=== PATIENT | female | born 1985 | race Caucasian/White ===

== ENCOUNTER 2017-02-28 12:57 | Inpatient (IN) | payer BC, OTHER ==
[~2017-02-28] VITALS: Ht 175.3 cm; Wt 58.5 kg
[2017-02-28] MEDS ORDERED: ONDANSETRON ODT 4 MG TAB.RAPDIS SL PRN (20:45)
[2017-02-28] MEDS ORDERED: DICYCLOMINE HCL 20 MG TABLET PO PRN (20:45)
[2017-02-28] MEDS ORDERED: LOPERAMIDE HCL 2 MG CAPSULE PO PRN ×2 (20:45)
[2017-02-28] MEDS ORDERED: BUPRENORPHINE HCL 2 MG TAB.SUBL SL PRN (20:45)
[2017-02-28] MEDS ORDERED: ACETAMINOPHEN 325 MG TABLET PO PRN (20:45)
[2017-02-28] MEDS ORDERED: MIRALAX 17 GM POWD.PACK PO PRN (20:45)
[2017-02-28] MEDS ORDERED: LORAZEPAM 2 MG/1 ML VIAL IM PRN (20:45)
[2017-02-28] MEDS ORDERED: LORAZEPAM 1 MG TABLET PO PRN ×2 (20:45)
[2017-02-28] MEDS ORDERED: MAG HYDROX/AL HYDROX/SIMETH 30 ML LIQUID UDC PO PRN (20:45)
[2017-02-28] MEDS ORDERED: MAGNESIUM HYDROXIDE 30 ML LIQUID UDC PO PRN (20:45)
[2017-02-28] MEDS ORDERED: IBUPROFEN 600 MG TABLET PO PRN (20:45)
[2017-02-28] MEDS ORDERED: METHOCARBAMOL 750 MG TABLET PO PRN (20:45)
[2017-02-28] MEDS ORDERED: ONDANSETRON 4 MG/2 ML VIAL IM PRN (20:45)
--- NOTE | 2017-02-28 21:30 | NUR ---
INTAKE ASSESSMENT BP: 114/72, RR: 18, HR: 84, SpO2: 100%, T: 98.1 Pt is in stable condition and able to be admitted on the unit. Unit protocols regarding medications and vital signs Q4H explained. Pt verbalized understanding. Will monitor.
--- NOTE | 2017-02-28 21:34 | NUR ---
Pt not admitted to unit at this time. EKG to be done (per MD orders) when pt admitted.
--- NOTE | 2017-02-28 23:00 | NUR ---
ADMISSION NOTE Ht: 59 Wt: 129lbs CIWA:7, COWS:11 Pt arrived ambulatory from [facility] to the third floor accompanied by a SENSORY SCIENTIST at 2252. Pt is a 31 year old female admitted on 02/28/17 for Benzo, Opiate and phentermine dependency. Pt is full code with NKA. She reports a PMHX of a alcoholism, cirrhosis(at age 26), hypothyroidism, anxiety, panic attacks, OCD, depression, body dysmorphia, and eating disorder( since 16 y/o). She denies any history of seizures. She denies having a PCP and brought in several home medications which have been reconciled. Pt reports that she has been to treatment in the past. In 2003 she went to rehab for EOTH and opiate dependency at [facility] in [place], [place]. In 2010 she went to [facility] for ETOH dependency. She reports that she was an alcoholic from age [age] and is currently in recovery. This is her first time in detox. She reports her longest sobriety was approximately 1 year from April 2011-December 2011 She reports that she is here for Xanax, [place] and Phentermine dependency. She describes her current use as: 1. Xanax 1 mg-6 mg PO daily since April 2013 Last dose: 1 mg on 02/28/17 2. [place] (10/325) 140 mg intermittently since 2013. Pt reports from [id number] she took [place]( 5/325) 22 pills daily. Last dose: 90 mg on 02/28/17 3. Phentermine 30 mg ( 8 pills) daily for 1 year. Last dose: 150 mg on 02/28/17. She describes her withdrawal symptoms as: "nausea, stomach cramps, pain and sweats" Upon assessment, pt is alert and oriented x4. Pt is observed to be anxious, restless, and agitated, but is cooperative. Speech is clear and audible. Heart rate is regular. Pt denies chest pain or SOB. PERRLA, breathing is even and unlabored, lung sounds clear in all lobes. Abdomen is soft and non distended, bowel sounds present. Last BM 02/28/17. Pt reports that BM is regular. Pt's skin is warm, dry and intact. made aware of pt's admission. Pt oriented to room and unit. Pt safe with bed locked in lowest position, side rails up x2 and call light within reach. Will continue to monitor.
[2017-02-28 23:36] LABS: BASOPHILS % (AUTO) 0.3 % (0.0-2.0); EOSINOPHILS # (AUTO) 0.1 K/uL (0.0-0.7); EOSINOPHILS % (AUTO) 1.4 % (0.0-7.0); HEMATOCRIT 34.5 % (37-47); HEMOGLOBIN 11.7 G/DL (12.0-16.0); LYMPHOCYTES # (AUTO) 2.9 K/UL (0.8-4.8); MEAN CORPUSCULAR HEMOGLOBIN 30.6 UUG (27.0-31.0); MEAN CORPUSCULAR HGB CONC 34 g/dL (32.0-37.0); MEAN CORPUSCULAR VOLUME 90.6 FL (81.0-99.0); MONOCYTES # (AUTO) 0.5 K/UL (0.1-1.30); NEUTROPHILS # (AUTO) 2.5 K/UL (1.8-8.9); NEUTROPHILS % (AUTO) 42.3 % (38.5-71.5); PLATELET COUNT (AUTO) 204 K/UL (150-450); RED BLOOD CELL COUNT(AUTO) 3.81 MIL/UL (4.2-5.4); RED CELL DISTRIBUTION WIDTH 11.9 % (11.5-14.5)
[2017-02-28 23:43] LABS: *URINE HCG, QUAL NEGATIVE (NEGATIVE)
[2017-02-28 23:44] LABS: ETHANOL < 3 MG/DL (0-0)
[2017-02-28 23:46] LABS: ALANINE AMINOTRANSFERASE 25 U/L (14-59); ALBUMIN 4.2 g/dL (3.4-5.0); ALKALINE PHOSPHATASE 62 U/L (50-136); ASPARTATE AMINOTRANSFERASE 25 U/L (15-37); BILIRUBIN,TOTAL 0.3 mg/dL (0.2-1.0); CARBON DIOXIDE 28 mmol/L (21-32); CHLORIDE 103 mmol/L (98-107); GFR 65 mL/min (>60); MAGNESIUM 2.2 mg/dL (1.8-2.4); POTASSIUM 3.8 mmol/L (3.5-5.1); SODIUM SERUM 140 mmol/L (136-145); TOTAL PROTEIN, SERUM 7.6 g/dL (6.4-8.2); UREA NITROGEN, BLOOD 12 mg/dL (7-18)
[2017-02-28 23:49] LABS: *AMPHETAMINE, URINE POSITIVE (NEGATIVE); *BARBITURATE, URINE NEGATIVE (NEGATIVE); *CANNABINOID, URINE POSITIVE (NEGATIVE); *COCCAINE, URINE NEGATIVE (NEGATIVE); *OPIATE, URINE POSITIVE (NEGATIVE); *PHENCYCLIDINE SCREEN,URINE NEGATIVE (NEGATIVE)
[2017-02-28 23:55] LABS: GLUCOSE 48 mg/dL (74-106)
[2017-02-28 23:57] LABS: THYROID STIMULATING HORMONE 0.486 mIU/mL (0.358-3.740)
[2017-03-01] VITALS: BP 118/64
[2017-03-01] LABS: HIV-1 p24 ANTIGEN NON REACTIVE (NONREACTIVE); HIV-1/2 ANTIBODY NON REACTIVE (NONREACTIVE)
[2017-03-01] MEDS ORDERED: LORAZEPAM 1 MG TABLET ONE (01:33)
[2017-03-01] MEDS ORDERED: CLONIDINE HCL 0.1 MG TABLET ONE (01:34)
[2017-03-01] MEDS ORDERED: diphenhydrAMINE 50 MG CAPSULE ONE (01:34)
[2017-03-01] MEDS: CLONIDINE HCL 0.1 MG TABLET PO PRN (01:44)
[2017-03-01] MEDS: diphenhydrAMINE 50 MG CAPSULE PO PRN (01:44)
--- NOTE | 2017-03-01 01:44 | NUR ---
PRN ATIVAN/CLONIDINE/BENADRYL Pt complains of anxiety/restlessness and inability to fall asleep. Pt observed to be restless in room, unable to sit still. Slight tremor observed. CIWA: 7. PRN Ativan, Clonidine and Benadryl administered as ordered. Breathing is even and unlabored, respirations 16. Safety measures in place. Will continue to monitor effectiveness of medications.
--- NOTE | 2017-03-01 02:44 | NUR ---
PRN ATIVAN/CLONIDINE/BENADRYL REASSESSMENT PRN medications effective. Pt lying comfortably in bed with eyes closed noted to be asleep. No facial grimacing noted. Respirations 16, breathing is even and unlabored. Safety measures in place. Will continue to monitor.
[2017-03-01 04:00] VITALS: BP 109/56
--- NOTE | 2017-03-01 04:00 | NUR ---
COWS/CIWA DEFERRED COWS/CIWA deferred d/t order is Q4H while awake. Pt lying in bed with eyes closed noted to be asleep. Respirations 16, breathing is even and unlabored. Safety measures in place. Will monitor.
[2017-03-01] MEDS ORDERED: FLUO40CA49 PO (04:42)
[2017-03-01] MEDS ORDERED: ESTR-14 PO (04:42)
[2017-03-01] MEDS ORDERED: NEOM28.38 TP (04:42)
[2017-03-01] MEDS ORDERED: [UNRECOGNIZED DRUG - CODE] OP (04:42)
[2017-03-01] MEDS ORDERED: TRET20CR34 TP (04:42)
--- NOTE | 2017-03-01 07:21 | NUR ---
END OF SHIFT Pt is a 31 year old female patient admitted on 02/28/17 for Benzo, Opiate and Phentermine dependency. Pt is full code with NKA. At 0144 she received PRN Benadryl, Ativan and Clonidine. She slept a total of 4 hrs, Intake: 855mL ,Void: x1, BM: 0, COWS:11, CIWA: 7. Pt remains alert and oriented x4, breathing is even and unlabored. Pt is safe with bed locked in lowest position, side rails up x2 and call light within reach. Endorsed to oncoming shift.
--- NOTE | 2017-03-01 07:53 | NUR ---
BEGINNING OF SHIFT Patient endorsement report received from film processing shift supervisor nurse, all pertinent information discussed. patient is a 31 year old male admitted on 02/28/2017 with admitting Dx: BZO/opiate dependence. Patient currently with no ongoing taper, remains under close observation and has PRN medication available, for s/sx of withdrawal, per nights shift patient received PRN: Ativan, clonidine and Benadryl, medications were effective as per film processing shift supervisor. Patient with last cow score of: 11 and last ciwa score of: 7. Patient slept for 4 hours. Patient received awake, alert and oriented x4, educated regarding plan of care for the day and medication regimen. safety measures in place. call light kept with in reach, will continue to monitor.
[2017-03-01 08:49] VITALS: BP 96/62
[2017-03-01] MEDS: LORAZEPAM 1 MG TABLET PO SCH ×4 (08:58→20:08)
[2017-03-01] MEDS: MULTIVITAMINS,THERAPEUTIC TABLET PO SCH (08:58)
[2017-03-01] MEDS ORDERED: TUBERCULIN,PURIF.PROT.DERIV. 5 TU/0.1 ML TEST ID ONE (09:00)
[2017-03-01] MEDS: BUPRENORPHINE HCL 2 MG TAB.SUBL SL SCH ×4 (10:00→20:09)
--- NOTE | 2017-03-01 10:00 | NUR ---
REFUSED SUBUTEX 0900 assessment patient with cow score of: 8, As per Md order patient to be administered Subutex 4mg sl as ordered for cow score 8 or greater, risk vs benefits of refusing detox medication explained with good verbal understanding. Educated regarding s/sx of withdrawal. Patient encouraged adequate PO fluid intake as tolerated. Encouraged to attend group therapies/sessions to learn new coping skills to prevent relapse, denies any SI/HI. Safety measures in place. MD is aware.
[2017-03-01 12:30] VITALS: BP 112/68
[2017-03-01] MEDS: FLUOXETINE HCL 20 MG CAPSULE PO SCH (13:28)
[2017-03-01] MEDS ORDERED: NEOMY/BACITRAC/POLYMI OINT 28.35 GM TUBE TOP SCH (14:30)
[2017-03-01] MEDS ORDERED: [UNRECOGNIZED DRUG - OTHER] EACHEYE PRN (14:30)
[2017-03-01 17:00] VITALS: BP 116/71
--- NOTE | 2017-03-01 19:00 | NUR ---
END OF SHIFT Patient alert and oriented x4, vital signs stable during shift. Patient with admitting Dx: Opiate/BZO dependence. Patient was started on a Subutex and Ativan taper as ordered. First dose of Ativan taper was administered this morning, patient refused first dose of Subutex, despite risk vs benefits of refusing detox medication, first dose of Subutex was administered at 1300 as ordered, well tolerated, no ASE noted. 0900 assessment patient presented with: mild bone and joint aches, larger than normal pupils, nasal stuffiness, c/o chills, fine tremors, barely sweating with cow score of: 8 and ciwa score of: 6. 1300 assessment patient presented with: mild bone and joint aches, larger than normal pupils, nasal stuffiness, c/o chills, fine tremors, barely sweating and stomach cramps with cow score of: 9 and ciwa score of: 6 1700 assessment patient presented with: mild bone and joint aches, larger than normal pupils, nasal stuffiness, c/o chills, fine tremors, barely sweating and stomach cramps with cow score of: 9 and ciwa score of: 6. Patient was administered no PRNs During shift patient was seen by Dr. Hartley during shift as well. During shift administered PPD to left f/a, procedure well tolerated. Patient encouraged adequate PO fluid intake as tolerated. Encouraged to attend group therapies/sessions to learn new coping skills to prevent relapse, denies any SI/HI. Safety measures in place. call light kept with in reach. all needs met and rendered. patient endorsed to liability claims examiner nurse, all pertinent information discussed.
[2017-03-01 20:00] VITALS: BP 118/69
--- NOTE | 2017-03-01 20:05 | NUR ---
START OF SHIFT Received report from day shift nurse. Pt attended a group meeting and returned to her room after. She is a 31 yo female admitted to [facility] on 02/28 for BZD, opiate, and phentermine dependence. She is A&O x4 and ambulatory. NKA, full code status, on a regular diet. She has a PMH of hypothyroidism, cirrhosis, anxiety, panic attacks, OCD, depression, body dysmorphia, eating disorder, and alcoholism. On admission she reported using xanax 1-6mg per day, norco 140mg per day, and phentermine 30mg per day. She started a 5 day Ativan and 5 day subutex taper today. She reports hot and cold flashes and body aches. Tapers due tonight. Pt explains that prior to admission she was picking her eyebrow and eyelash hairs off. She states that she has not been doing that here. She denies SI. Fall and seizure precautions in place. Bed is down with call light in reach.
[2017-03-02] VITALS (7 sets, daily range): BP systolic 100–119; BP diastolic 47–73
[2017-03-02] MEDS: HYDROXYZINE PAMOATE 25 MG CAPSULE PO PRN ×2 (04:01→23:53)
[2017-03-02] MEDS: CLONIDINE HCL 0.1 MG TABLET PO PRN (04:01)
--- NOTE | 2017-03-02 04:05 | NUR ---
PRN Clonidine and Vistaril Pt woke up and reported seeing her bath robe and door handle moving. She states, "I know it's not really moving, it just looks like it is". She denies any other visual or auditory hallucinations. Her skin is moist and pupils are dilated. She reports feeling anxious, that she cannot relax and fall back to sleep. COWS 7 and CIWA 5. Provided calming reassurance. PRN Clonidine and Vistaril administered.
--- NOTE | 2017-03-02 05:05 | NUR ---
PRN Clonidine and Vistaril reassessment PRN Clonidine and Vistaril effective. Pt is lying comfortably in bed resting with eyes closed. Respirations even and unlabored. Bed is down with call light in reach.
--- NOTE | 2017-03-02 07:08 | NUR ---
END OF SHIFT Report provided to day shift nurse. Pt is lying in bed resting. She is a 31 yo female admitted to [facility] on 02/28 for BZD, opiate, and phentermine dependence. She is A&O x4 and ambulatory. NKA, full code status, on a regular diet. She has a PMH of hypothyroidism, cirrhosis, anxiety, panic attacks, OCD, depression, body dysmorphia, eating disorder, trichotillomania, and alcoholism. On admission she reported using xanax 1-6mg per day, norco 140mg per day, and phentermine 30mg per day. She started a 5 day Ativan and 5 day subutex taper on 03/01. Pt woke up and reported anxiety and mild hallucinations. COWS 8 and CIWA 7. PRN Clonidine and Vistaril administered. She was able to fall back to sleep. She drank 512mL and slept for 7 hours. Fall and seizure precautions in place. Bed is down with call light in reach.
[2017-03-02] MEDS: LORAZEPAM 1 MG TABLET PO SCH ×3 (08:30→20:35)
[2017-03-02] MEDS: MULTIVITAMINS,THERAPEUTIC TABLET PO SCH (08:30)
[2017-03-02] MEDS: FLUOXETINE HCL 20 MG CAPSULE PO SCH (08:30)
[2017-03-02] MEDS: BUPRENORPHINE HCL 2 MG TAB.SUBL SL SCH ×3 (08:30→20:36)
--- NOTE | 2017-03-02 08:32 | NUR ---
START OF SHIFT Received pt this Aox4. Patient presents fatigued with flat affect and congruent mood. patient presents tremulous. Patient on 5 day Ativan/5 day Subutex taper. Patient given PRN Clonidine and Vistaril per night nurse and slept 7 hours. COWS 5 CIWA 9 at 0800. Vital signs stable. Encouraged pt to increase fluids to facilitate detox. Encouraged attendance in groups and activities. WIll provide safe and supportive environment. Will continue to monitor.
[2017-03-02 08:36] LABS: CALCIUM 8.5 mg/dL (8.5-10.1); CREATININE 0.8 mg/dL (0.6-1.3); PHOSPHOROUS 4.3 mg/dL (2.5-4.9); POTASSIUM 4.1 mmol/L (3.5-5.1)
[2017-03-02] MEDS: [UNRECOGNIZED DRUG - OTHER] PO SCH (08:36)
[2017-03-02 12:07] LABS: HCV AB <0.1 s/co ratio (0.0-0.9); HEPATITIS B CORE AB, IgM Negative (Negative); HEPATITIS B SURFACE AG Negative (Negative)
--- NOTE | 2017-03-02 16:42 | NUR ---
Client encouraged client to attend group therapy so that she could receive ongoing support. Client declined to attend stating that she is too anxious and did not want to be around people. Addendum: 03/02/17 at 1645 by ASH FRANK Correction- Therapist encouraged client to attend group therapy.
--- NOTE | 2017-03-02 18:29 | NUR ---
START OF SHIFT NOTE: Patient endorsed by outgoing day shift nurse in stable condition. Report received. Patient is a 31 year old female, admitted to [facility] on 02/28/17 for Benzodiazepines, Opioid, Amphetamines, and Cannabis dependence, placed on 5 Day Ativan and 5 Day Subutex taper since 03/01/17, and tolerated well. Patient remains compliant with therapeutic plan, medications and diet regime. NKA, Regular Diet, Full Code, Fall & Seizures Precautions. Patient denies History of Seizures. PMH: Alcoholism, Anxiety, Cirrhosis since 2011, Depression, Eating disorder, Hypothyroidism, OCD, Panic Attacks, Trichotillomania. Upon endorsement, patient was assessed. COWS 5, CIWA 5. Patient presents with withdrawal S/S: Anxiety, Agitation, nervousness, slight tremors observed , body aches, sweats. Patient denies N/V, and diarrhea. VS WNL. Breathing is even and unlabored. Patient denies SOB and chest pain. Lungs are clear bilaterally. Bowel Sounds are active in all x4 quadrants. Last BM's on 03/02/17 at 19:00". Skin is intact, warm and moist by tough. All needs met. Safety measures in place by hospital policy: Call light within reach, bed in the lowest position and lock, padded rails up x2. Will continue to monitor closely.
--- NOTE | 2017-03-02 18:29 | NUR ---
END OF SHIFT NOTE Patient continues on 5 day Ativan/5 day Subutex taper and tolerating well. No PRNs needed during shift. Patient rested in bed most of shift. Last COWS 6 CIWA 7. All needs have been met. Safety measures in place. Patient currently in bed with bed locked and in lowest position and call contreras within reach. Will pass shift report to oncoming shift.
--- NOTE | 2017-03-02 20:31 | NUR ---
PRN BENADRYL PO ADMINISTRATION Patient c/o insomnia and asked fol aid. Patient's assessed. VS WNL. COWS 5, CIWA 5. Patient presents with withdrawal S/S: Anxiety, Agitation, nervousness, slight tremors observed , body aches, sweats. Patient denies N/V, and diarrhea. PRN Benadryl PO was discussed with patient. Patient educated for actions, adverse reactions, and side effects of Benadryl. Patient returned back knowledge by verbalizes understanding. PRN Benadryl PO administrated as ordered with full glass of water. Patient tolerated well. . All needs met. Safety measures in place by hospital policy: Call light within reach, bed in the lowest position and lock, padded rails up x2. Will continue to monitor closely.
[2017-03-02] MEDS: diphenhydrAMINE 50 MG CAPSULE PO PRN (20:36)
--- NOTE | 2017-03-02 21:31 | NUR ---
RE-ASSESSMENT Patient in her room in the bed with closed eyes. Patient is sleeping. Respirations are unlabored and even. RR: 16. PRN Benadryl PO was effective. All needs met. Safety measures in place by hospital policy: Call light within reach, bed in the lowest position and lock, padded rails up x2. Will continue to monitor closely.
--- NOTE | 2017-03-02 23:53 | NUR ---
PRN VISTARIL PO ADMINISTRATION Patient c/o increased anxiety and asked PRN Vistaril PO administration. Patient was assessed. COWS 4, CIWA 4. Patient presents with withdrawal S/S: Anxiety, Agitation, nervousness, slight tremors observed, sweats. Patient denies N/V, and diarrhea. VS WNL. Breathing is even and unlabored. Patient denies SOB and chest pain. Patient was educated for actions, adverse reactions, and side effects of Vistaril. Patient returned back knowledge by verbalized understanding. PRN Vistaril 25 mg 1 tab administrated as ordered with full glass of water as ordered. Patient tolerated well. All needs met. Safety measures in place by hospital policy: Call light within reach, bed in the lowest position and lock, padded rails up x2. Will continue to monitor closely.
[2017-03-03] VITALS: BP 110/68
--- NOTE | 2017-03-03 00:53 | NUR ---
RE - ASSESSMENT Patient is sleeping. Breathing is unlabored and even. RR: 15. All needs met. Safety measures in place by hospital policy: Call light within reach, bed in the lowest position and lock, padded rails up x2. Will continue to monitor closely.
--- NOTE | 2017-03-03 04:00 | NUR ---
VS REFUSED AND CIWA/COWS DEFERRED Patient refused to be woken up for 04:00 VS. CIWA/COWS deferred d/t patient sleeping to assess while patient is awake. Safety measures on place by hospital policy: Call light within reach; Bed in lowest position and locked; side rails up x2. Will continue to monitor.
--- NOTE | 2017-03-03 07:03 | NUR ---
END OF SHIFT NOTE: Patient endorsed to day shift nurse in stable condition. Report given. Patient is a 31 year old female, admitted to [facility] on 02/28/17 for Benzodiazepines, Opioid, Amphetamines, and Cannabis dependence, placed on 5 Day Ativan and 5 Day Subutex taper since 03/01/17, and tolerated well. NKA, Regular Diet, Full Code, Fall & Seizures Precautions. Patient denies History of Seizures. PMH: Alcoholism, Anxiety, Cirrhosis since 2011, Depression, Eating disorder, Hypothyroidism, OCD, Panic Attacks, Trichotillomania. Latest COWS decreased from 5 to 4 and CIWA decreased from 5 to 4. Patient presented with withdrawal S/S: Anxiety, Agitation, nervousness, slight tremors observed , body aches, sweats. Patient denies N/V, and diarrhea. VS WNL. Breathing is even and unlabored. Patient denies SOB and chest pain. Skin is intact, warm and moist by tough. PRN Benadryl PO and PRN Vistaril PO were effective. Patient remains compliant with treatment plan, medications and diet regime. Patient slept 9 hours, Intake 1597 ml, Voided x2. All needs met. Safety measures in place by hospital policy: Call light within reach, bed in the lowest position and lock, padded rails up x2.
--- NOTE | 2017-03-03 07:06 | NUR ---
Start of Shift Endorsement received from nightshift nurse. Pt is a 31 y/o female admitted for Benzo and Opiate dependence. Pt has been placed on a 5 day Subutex and 5 day Ativan taper. Pt is tolerating both tapers, mildly withdrawing at this time AEB COWS 4, CIWA 4 at midnight. Pt received PRN Vistaril and Benadryl. PT reports sleeping 9 hours. Pt appears to be sleeping at this time, breathing even and unlabored, responsive to name and touch. VS WNL. Full Code. PT is alert and oriented x4. Pt is in STABLE condition at this time. Remains compliant with medication and diet regimen. All needs have been met, All safety measures in place per hospital policy. Bed in lowest position, side rails up x2, call-light within reach. Will continue to monitor
[2017-03-03 08:00] VITALS: BP 105/56
[2017-03-03] MEDS ORDERED: BUPRENORPHINE HCL 2 MG TAB.SUBL SL SCH (09:00)
[2017-03-03] MEDS: MULTIVITAMINS,THERAPEUTIC TABLET PO SCH (09:15)
[2017-03-03] MEDS: FLUOXETINE HCL 20 MG CAPSULE PO SCH (09:15)
[2017-03-03] MEDS: LORAZEPAM 1 MG TABLET PO SCH ×4 (09:15→21:40)
[2017-03-03] MEDS: [UNRECOGNIZED DRUG - OTHER] PO SCH (09:15)
[2017-03-03 12:00] VITALS: BP 106/54
[2017-03-03] MEDS: BUPRENORPHINE HCL 2 MG TAB.SUBL SL SCH ×2 (15:00→21:40)
[2017-03-03 16:00] VITALS: BP 115/62
--- NOTE | 2017-03-03 19:05 | NUR ---
End of Shift Endorsement given to nightshift nurse. Pt is a 31 y/o female admitted for Benzo and Opiate dependence. Pt has been placed on a 5 day Subutex and 5 day Ativan taper. Pt is tolerating both tapers, mildly withdrawing at this time AEB COWS 2, CIWA 1 at 1600. Pt did not receive any PRN medications. PT refused 1300 and 1700 Ativan and 1500 Subutex orders, reporting that it makes her too drowsy and groggy. Pt slept 4 hours sleeping during the day, PT participated in group but not activities. Educated pt on deep breathing technique to help relieve mild to moderate anxiety. Intake: 1100ml, Void x2, BM x0. VS WNL. Full Code. PT is alert and oriented x4. Pt is in STABLE condition at this time. Remains compliant with medication and diet regimen. All needs have been met, All safety measures in place per hospital policy. Bed in lowest position, side rails up x2, call-light within reach. Will continue to monitor
--- NOTE | 2017-03-03 19:30 | NUR ---
START OF SHIFT NOTES : Pt is a 31 y/o female admitted for Benzo and Opiate dependence. Pt has been placed on a 5 day Subutex and 5 day Ativan taper. Pt is tolerating both tapers, PT refused 1300 and 1700 Ativan and 1500 Subutex orders, reporting that it makes her too drowsy and groggy. PT participated in group but not activities. VS WNL. Full Code. PT is alert and oriented x4. Pt is in STABLE condition at this time. Remains compliant with medication and diet regimen. All needs have been met, All safety measures in place per hospital policy. Bed in lowest position, side rails up x2, call-light within reach. Will continue to monitor and offer help.
[2017-03-03 20:00] VITALS: BP 93/45
--- NOTE | 2017-03-04 06:37 | NUR ---
END OF SHIFT NOTES : Pt is a 31 y/o female admitted for Benzo and Opiate dependence. Pt has been placed on a 5 day Subutex and 5 day Ativan taper. Pt is tolerating both tapers, PT refused 1300 and 1700 Ativan and 1500 Subutex orders, reporting that it makes her too drowsy and groggy. PT participated in group but not activities. VS WNL. Full Code. PT is alert and oriented x4. Pt is in STABLE condition at this time. Pt remains compliant with the treatment plan. RR=16, even and unlabored, lungs clear upon auscultation, abdomen soft and non- distended. Pt denies nausea, vomiting and diarrhea. LAST CIWA=2 at 0400, COWS= 2, LYCSFQ=376 ml, voided x 2, slept 11 hours. Safety measures in place : bed on lowest position with side rails x2 up for safety, call light within reach. Will continue to monitor closely and offer help.
--- NOTE | 2017-03-04 07:00 | NUR ---
Start of Shift Endorsement received from nightshift nurse. Pt is a 31 y/o female admitted for Benzo and Opiate dependence. Pt has been placed on a 5 day Subutex and 5 day Ativan taper. Pt is tolerating both tapers, mildly withdrawing at this time AEB COWS 2 CIWA 2 at 0400. Pt has been NPO after midnight due to having a abdominal Ultrasound scheduled today. Pt did not receive any PRN medications . PT reports sleeping 11 hours. VS WNL. Full Code. PT is alert and oriented x4. Pt is in STABLE condition at this time. Remains compliant with medication and diet regimen. All needs have been met, All safety measures in place per hospital policy. Bed in lowest position, side rails up x2, call-light within reach. Will continue to monitor
[2017-03-04 08:00] VITALS: BP 95/57
[2017-03-04] MEDS: MULTIVITAMINS,THERAPEUTIC TABLET PO SCH (09:33)
[2017-03-04] MEDS: FLUOXETINE HCL 20 MG CAPSULE PO SCH (09:33)
[2017-03-04] MEDS: BUPRENORPHINE HCL 2 MG TAB.SUBL SL SCH ×3 (09:33→21:25)
[2017-03-04] MEDS: LORAZEPAM 1 MG TABLET PO SCH ×3 (09:34→21:25)
[2017-03-04] MEDS: [UNRECOGNIZED DRUG - OTHER] PO SCH (09:35)
[2017-03-04 12:00] VITALS: BP 106/52
[2017-03-04 16:00] VITALS: BP 112/56
--- NOTE | 2017-03-04 19:20 | NUR ---
End of Shift Endorsement given to nightshift nurse. Pt is a 31 y/o female admitted for Benzo and Opiate dependence. Pt has been placed on a 5 day Subutex and 5 day Ativan taper. Pt is tolerating both tapers, mildly withdrawing at this time AEB COWS 1, CIWA 1 at 1600. Pt did not receive any PRN medications. PT refused 1500 Ativan and Subutex orders, reporting that it makes her too drowsy and groggy. PT spent most of the day in her room. PT participated in group but not activities. Educated pt on deep breathing technique to help relieve mild to moderate anxiety. Intake: 1500ml, Void x3, BM x0. VS WNL. Full Code. PT is alert and oriented x4. Pt is in STABLE condition at this time. Remains compliant with medication and diet regimen. All needs have been met, All safety measures in place per hospital policy. Bed in lowest position, side rails up x2, call-light within reach. Will continue to monitor
--- NOTE | 2017-03-04 19:30 | NUR ---
START OF SHIFT : Pt is a 31 y/o female admitted for Benzo and Opiate dependence. Pt has been placed on a 5 day Subutex and 5 day Ativan taper. Pt is tolerating both tapers. PT participated in group and activities. VS WNL. Full Code. PT is alert and oriented x4. Pt is in STABLE condition at this time. Remains compliant with medication and diet regimen. All needs have been met, All safety measures in place per hospital policy. Bed in lowest position, side rails up x2, call-light within reach. Will continue to monitor and offer help.
[2017-03-04 20:00] VITALS: BP 98/62
--- NOTE | 2017-03-05 06:49 | NUR ---
START OF SHIFT : Pt is a 31 y/o female admitted for Benzo and Opiate dependence. Pt has been placed on a 5 day Subutex and 5 day Ativan taper. Pt is tolerating both tapers. PT participated in group and activities. Full Code. PT is alert and oriented x4. Pt remains compliant with the treatment plan. PRN TYLENOL, CLONIDINE, ROBAXIN were given during my shift. V/S remain stable. RR=16, even and unlabored, lungs clear upon auscultation, abdomen soft and non- distended. Pt denies nausea, vomiting and diarrhea. LAST CIWA= 2 ,COWS=2 at 0400 , INTAKE= 825 ml, voided x 1, slept 9 hours. All needs have been met, All safety measures in place per hospital policy. Bed in lowest position, side rails up x2, call-light within reach. Will continue to monitor and offer help.
--- NOTE | 2017-03-05 07:08 | NUR ---
Start of Shift Endorsement received from nightshift nurse. Pt is a 31 y/o female admitted for Benzo and Opiate dependence. Pt has been placed on a 5 day Subutex and 5 day Ativan taper. Pt is tolerating both tapers, mildly withdrawing at this time AEB COWS 2 CIWA 2 at 0400.. Pt did not receive any PRN medications . PT reports sleeping 11 hours. VS WNL. Full Code. PT is alert and oriented x4. Pt is in STABLE condition at this time. Remains compliant with medication and diet regimen. All needs have been met, All safety measures in place per hospital policy. Bed in lowest position, side rails up x2, call-light within reach. Will continue to monitor
[2017-03-05 08:00] VITALS: BP 88/51
[2017-03-05] MEDS: BUPRENORPHINE HCL 2 MG TAB.SUBL SL SCH ×2 (09:00→20:15)
[2017-03-05] MEDS: FLUOXETINE HCL 20 MG CAPSULE PO SCH (09:23)
[2017-03-05] MEDS: LORAZEPAM 1 MG TABLET PO SCH ×2 (09:23→20:15)
[2017-03-05] MEDS: MULTIVITAMINS,THERAPEUTIC TABLET PO SCH (09:23)
[2017-03-05] MEDS: [UNRECOGNIZED DRUG - OTHER] PO SCH (09:23)
[2017-03-05 12:00] VITALS: BP 104/64
[2017-03-05 16:00] VITALS: BP 100/54
--- NOTE | 2017-03-05 19:03 | NUR ---
End of Shift Endorsement given to nightshift nurse. Pt is a 31 y/o female admitted for Benzo and Opiate dependence. Pt has been placed on a 5 day Subutex and 5 day Ativan taper. Pt is tolerating both tapers, mildly withdrawing at this time AEB COWS 1, CIWA 1 at 1600. Pt did not receive any PRN medications. Pt spent most of the day sleeping. Pt reports readiness for discharge. Educated pt on s/e medications and withdrawal symptoms. Encouraged pt to participate in group and activates.. Intake: 750ml, Void x3, BM x0. VS WNL. Full Code. PT is alert and oriented x4. Pt is in STABLE condition at this time. Remains compliant with medication and diet regimen. All needs have been met, All safety measures in place per hospital policy. Bed in lowest position, side rails up x2, call-light within reach. Will continue to monitor
--- NOTE | 2017-03-05 19:45 | NUR ---
START OF SHIFT NOTE Pt is a 31 y/o female admitted for Xanax, [place], and Phentermine dependence and use. Pt has NKA but reported a PMH of Hypothyroidism, cirrhosis, anxiety, panic attacks, OCD, depression, body dysmorphia, eating disorder, alcoholism, trichotillomania. Per day shift nurse pt was placed on a 5 day Ativan and Subutex taper(day 5) and is tolerating medication well, with no s/e or a/r reported. Pt didn't receive any PRNS during the day shift. Last COW: 1 and CIWA: 1 (1600). At this time pt is lying down watching television in her room. Pt stated " I'm doing okay today. I was having hot and cold sweats earlier today but they stopped." Pt denies any pain/discomfort at this time. Pt is encouraged to notify staff of any changes in condition or of concerns. Pt verbalized an understanding. All safety measures in place; side rails up x 2, bed locked and in low position, and call light within reach. Will continue to monitor.
[2017-03-05 20:00] VITALS: BP 111/63
[2017-03-06] VITALS: BP 117/70
[2017-03-06] MEDS: diphenhydrAMINE 50 MG CAPSULE PO PRN ×2 (00:12→22:56)
--- NOTE | 2017-03-06 00:12 | NUR ---
BENADRYL PRN ADMINISTRATION Pt stated " I need something to help me sleep." Benadryl 50 mg PO PRN was given. Pt was encouraged to notify staff of any changes in condition or of any further concerns. Pt verbalized an understanding. All safety measures in place. Will monitor for effectiveness.
--- NOTE | 2017-03-06 01:12 | NUR ---
BENADRYL PRN REASSESSMENT Pt is asleep in bed with no signs of distress/discomfort noted. Pt's breathing is even and unlabored. PRN effective. All safety measures in place. Will continue to monitor.
--- NOTE | 2017-03-06 04:00 | NUR ---
COW, CIWA, AND VITALS REFUSED Pt refused to be assessed and have vitals taken at this time. Pt was encouraged x 3 with risks and benefits explained, but the pt still declined. All safety measures in place. Will continue to monitor. Addendum: 03/06/17 at 0640 by BROOKE CARRANZA LVN Amended: Links added.
--- NOTE | 2017-03-06 07:00 | NUR ---
END OF SHIFT NOTE Pt is a 31 y/o female admitted for Xanax, [place], and Phentermine dependence and use. Pt has NKA but reported a PMH of Hypothyroidism, cirrhosis, anxiety, panic attacks, OCD, depression, body dysmorphia, eating disorder, alcoholism, trichotillomania. Pt continues on a 5 day Ativan and Subutex taper and is tolerating medication well, with no s/e or a/r reported. Pt didn't received Benadryl 50 mg PO PRN during the shift. Last COW: 2 and CIWA: 0 (0000). Pt slept for a total of 7 hours. All safety measures in place; side rails up x 2, bed locked and in low position, and call light within reach. Endorsed to the oncoming nurse.
--- NOTE | 2017-03-06 07:01 | NUR ---
Start of Shift Notes: Received patient in her/his room. Alert and oriented x 4. Verbally responsive. Able to make need known. Respirations even and unlabored. No SOB noted. Skin warm and dry to touch. Abdomen and soft non-distended with BS (+) in all 4 quadrants. No complains of N/V/D or constipation noted. Voids independently. Denies dysuria. Ambulatory ad roger with steady gait. Patient is a 31 year old female admitted for BZO/opiate and phentermine dependence who was placed on a 5-day Ativan and 5-day Subutex taper as ordered. No adverse reactions noted. Has past medical hx of eating disorder, panic attacks, body dysmorphia, and hypothyroidism. NKA. FULL CODE. Regular diet. On fall and seizure precautions. Educated patient on her current plan of care and medication regimen. Encouraged oral fluid intake and encouraged group participation to learn new skills to prevent relapse. Will continue to monitor closely.
[2017-03-06 08:00] VITALS: BP 99/60
[2017-03-06] MEDS: [UNRECOGNIZED DRUG - OTHER] PO SCH (08:30)
[2017-03-06] MEDS: MULTIVITAMINS,THERAPEUTIC TABLET PO SCH (08:31)
[2017-03-06] MEDS: FLUOXETINE HCL 20 MG CAPSULE PO SCH (08:35)
--- NOTE | 2017-03-06 08:36 | NUR ---
Miralax 17gm PO given: Patient noted with complain of constipation. Oral fluids encouraged. Medicated patient with Miralax 17 gm PO at this time. Will continue to monitor closely.
--- NOTE | 2017-03-06 09:36 | NUR ---
Re-assessment: Per patient, no result noted from Miralax at this time. Will continue to monitor the patient and encourage oral fluid and mobility.
[2017-03-06 12:00] VITALS: BP 98/43
[2017-03-06] MEDS: HYDROXYZINE PAMOATE 25 MG CAPSULE PO PRN (12:41)
--- NOTE | 2017-03-06 12:41 | NUR ---
Vistaril 25 mg PO given: Patient noted with complain of anxiety. BP 90/55. Pulse 82. Medicated patient with Vistaril 25 mg PO as ordered. Will monitor for the effectiveness.
[2017-03-06 13:07] LABS: *AMPHETAMINE, URINE NEGATIVE (NEGATIVE); *BARBITURATE, URINE NEGATIVE (NEGATIVE); *CANNABINOID, URINE NEGATIVE (NEGATIVE); *COCCAINE, URINE NEGATIVE (NEGATIVE); *OPIATE, URINE NEGATIVE (NEGATIVE); *PHENCYCLIDINE SCREEN,URINE NEGATIVE (NEGATIVE)
--- NOTE | 2017-03-06 13:41 | NUR ---
Re-assessment: Per patient, PRN Vistaril was effective in reducing patient's anxiety.
[2017-03-06 16:00] VITALS: BP 110/53
[2017-03-06] MEDS ORDERED: METH-33 PO (16:42)
[2017-03-06] MEDS ORDERED: DIPH50CA37 PO (16:42)
[2017-03-06] MEDS ORDERED: Ibuprofen PO (16:42)
[2017-03-06] MEDS ORDERED: DICY20TA28 PO (16:42)
[2017-03-06] MEDS ORDERED: HYDR-3895 PO (16:42)
--- NOTE | 2017-03-06 18:33 | NUR ---
End of Shift Notes: Patient is a 31 year old female admitted for BZO and opiate dependence who was placed on a 5-day Ativan and 5-day Subutex taper as ordered. Completed taper and will be discharging tomorrow. Prior to admission, patient was using 1-6mg of Xanax, and 140 mg of [place]. VS monitored closely. No significant abnormalities noted. Withdrawal symptoms were closely monitored. Initial COWS 0/CIWA 0. Last COWS 0/CIWA 0. Medicated patient with Vistaril 25 mg PO as ordered at 1241 for anxiety with help after 1 hour. Did not participate in group and therapy sessions. Miralax 17 gm PO given for constipation with no result. Requires encouragement to socialize. All needs met and attended. Will continue to monitor closely.
[2017-03-06 20:00] VITALS: BP 102/54
--- NOTE | 2017-03-06 20:00 | NUR ---
Start of Shift Patient is a 31 year old, female, admitted for BZO, Opiate and Phentermine Dependence. Pt placed on a 5-day Ativan and 5-day Subutex taper, started 03/01/2017, and with no adverse reactions noted. With PMHx of Anxiety, Depression, OCD, Eating Disorder, Panic Attacks, Body Dysmorphia, Trichotillomania and Hypothyroidism. Pt reports NKA, is Full Code and on Regular Diet. Pt is AAOx4 and with no anxiety noted at this time. No SOB noted and not in respi distress. Pt is ambulatory with steady gait and with intact skin. Fall, universal, seizure and safety prec in place. Call light within reach. All needs met. Latest COWS=0, CIWA=0. Will continue to monitor.
--- NOTE | 2017-03-06 22:57 | NUR ---
RN note PRN Benadryl Pt c/o sleeplessness. Administered Benadryl 50 mg PO. Will reassess.
--- NOTE | 2017-03-06 23:55 | NUR ---
RN note reassess Pt asleep on bed, with no SOB nor facial grimacing noted.
[2017-03-07] VITALS: BP 114/65
[2017-03-07] MEDS: HYDROXYZINE PAMOATE 25 MG CAPSULE PO PRN (01:33)
--- NOTE | 2017-03-07 01:33 | NUR ---
RN note PRN Robaxin and Vistaril Pt c/o generalized muscle pain=6/10 and feeling anxious. Administered Robaxin 750 mg PO and Vistaril 25 mg PO as ordered. Will reassess.
--- NOTE | 2017-03-07 02:40 | NUR ---
RN note reassess Pt asleep on bed, no SOB nor facial grimacing noted. Robaxin and Vistaril are effective.
[2017-03-07 04:00] VITALS: BP 92/54
--- NOTE | 2017-03-07 07:07 | NUR ---
End of Shift Patient is a 31 year old, female, admitted for BZO, Opiate and Phentermine Dependence. Pt placed on a 5-day Ativan and 5-day Subutex taper, started 03/01/2017, and with no adverse reactions noted. With PMHx of Anxiety, Depression, OCD, Eating Disorder, Panic Attacks, Body Dysmorphia, Trichotillomania and Hypothyroidism. Pt reports NKA, is Full Code and on Regular Diet. Pt is AAOx4 and with no anxiety noted at this time. No SOB noted and not in respi distress. Pt is ambulatory with steady gait and with intact skin. Fall, universal, seizure and safety prec in place. Call light within reach. All needs met. Latest COWS=0, CIWA=0, slept for 3 hours. Endorsed to AM shift nurse for continuity of care.
--- NOTE | 2017-03-07 07:35 | NUR ---
BEGINNING OF SHIFT Patient endorsement report received from police shift commander nurse, all pertinent information discussed. patient is a 31 year old male admitted on 02/28/2017 with admitting Dx: BZO/opiate dependence. Patient currently completed 5 day Ativan and 5 day Subutex taper as ordered, and is scheduled for discharge this morning. Patient noted self motivated towards sobriety. per nights shift patient received PRN: Benadryl, Robaxin and Benadryl, medications were effective as per police shift commander. Patient with last cow score of: 0 and last ciwa score of: 0. Patient slept for 3. hours. Patient received awake, alert and oriented x4, educated regarding plan of care for the day and medication regimen. safety measures in place. call light kept with in reach, will continue to monitor.
[2017-03-07] MEDS: FLUOXETINE HCL 20 MG CAPSULE PO SCH (08:22)
[2017-03-07] MEDS: MULTIVITAMINS,THERAPEUTIC TABLET PO SCH (08:23)
[2017-03-07] MEDS: [UNRECOGNIZED DRUG - OTHER] PO SCH (08:23)
[2017-03-07 09:00] VITALS: BP 100/68
--- NOTE | 2017-03-07 12:20 | NUR ---
DISCHARGE Patient discharged at 1220, prior to discharge patient alert and oriented x4, vital signs were stable, no s/sx of withdrawal. Patient with last cow score of: 0 and last ciwa score of: 0. Patient discharged to [facility], noted self motivated towards sobriety. Patient educated regarding all discharge instructions and teaching with good verbal understanding. Patient off the unit at 1220 in stable condition.
[2017-03-08 17:19] LABS: *BENZODIAZEPINES Positive (.); *CANNABINOID (THC) Positive (.); *CODEINE Negative (Cutoff=300); *HYDROMORPHONE Positive (.); *NORDIAZEPAM Negative (Cutoff=300); *OPIATES Positive ng/mL (Cutoff=300); *OXAZEPAM Negative (Cutoff=300)
== END 2017-03-07 11:23 | disposition other institution (70) | DRG 895 ==
LOC: SRC 20:14
PROVIDERS: ADMIT Internal Medicine; ATTEND Internal Medicine
PROC: HZ2ZZZZ Detoxification Services for Substance Abuse Treatment (ICD-10-PCS; principal; 2017-02-28)
PROC: HZ31ZZZ Individual Counseling for Substance Abuse Treatment, Behavioral (ICD-10-PCS; 2017-03-02)
PROC: HZ41ZZZ Group Counseling for Substance Abuse Treatment, Behavioral (ICD-10-PCS; 2017-03-05)
DX: F13.230 Sedative, hypnotic or anxiolytic dependence with withdrawal, uncomplicated (principal); F11.23 Opioid dependence with withdrawal; D64.9 Anemia, unspecified; E03.9 Hypothyroidism, unspecified; F63.3 Trichotillomania; F41.0 Panic disorder [episodic paroxysmal anxiety]; F45.22 Body dysmorphic disorder; F42.9 Obsessive-compulsive disorder, unspecified; F15.23 Other stimulant dependence with withdrawal; F12.90 Cannabis use, unspecified, uncomplicated; F32.9 Major depressive disorder, single episode, unspecified; Z82.3 Family history of stroke; Z82.49 Family history of ischemic heart disease and other diseases of the circulatory system; Z86.59 Personal history of other mental and behavioral disorders; F43.10 Post-traumatic stress disorder, unspecified
CPT/HCPCS: 36415; 70030-TC; 76700; 80307; 80324; 80346; 80349; 80361; 82306; 82746; 83550; 83735; 84100; 84443; 84703; 85025; 86580; 86592; 86705; 86803; 87340; 87806; 93005; G6040-TC; Q0163